=== PATIENT | female | born 1985 | race African-American/Black ===

== ENCOUNTER 2016-11-25 12:27 | Emergency (ER) | payer OTHER ==
[2016-11-25 12:09] LABS: URINE SOURCE CLEAN CATCH
[2016-11-25 12:17] LABS: URINE APPEARANCE CLOUDY; URINE BILIRUBIN NEG (NEG); URINE BLOOD NEG (NEG); URINE COLOR YELLOW; URINE GLUCOSE NEG (NEG); URINE KETONE NEG (NEG); URINE LEUKOCYTE ESTERASE NEG (NEG); URINE NITRATE NEG (NEG); URINE PROTEIN NEG (NEG); URINE SPECIFIC GRAVITY 1.021 (1.003-1.035)
[2016-11-25 12:23] LABS: CULTURE INDICATED? NO
[~2016-11-25 12:27] MED LIST: BACTRIM DS TABL1 TA1 PO; FIORICET 50-321 EACH PO; FIORINAL 50-321 EACH PO; FLAGYL PO; TREXIMET 85-5001 TAB PO
[2016-11-29 09:27] LABS: CHLAMYDIA TRACH Not Detected (Not Detected); N GONOR Not Detected (Not Detected)
== END 2016-11-25 12:55 | disposition home or self-care (01) ==
LOC: CFTX 12:27
PROVIDERS: Physician Assistant
DX: N95.2 Postmenopausal atrophic vaginitis (principal); Z87.891 Personal history of nicotine dependence
CPT/HCPCS: 81003; 84703; 87491; 87591; 87808; 87905; 96372; 99284; J0696